=== PATIENT | female | born 1965 | race African-American/Black ===

== ENCOUNTER 2023-06-28 09:21 | Emergency (ER) | payer SELFPAY ==
[~2023-06-28 09:21] MED LIST: Iopamidol 300 61% 100 ML VIAL FS ONE
[2023-06-28] MEDS ORDERED: Ondansetron PF 4 MG/2 ML Vial ONE (10:01)
[2023-06-28] MEDS ORDERED: Acetaminophen 325 MG TAB ONE (10:02)
[2023-06-28 10:28] LABS: #Basophils 0.1 10x3/uL (0.0-0.2); #Eosinphils 0.2 10x3/uL (0.0-0.5); #Monocytes 0.5 10x3/uL (0.0-1.1); %Basophils 1.8 % (0.0-2.0); %Eosinophils 3.2 % (0.0-6.0); %Lymphocytes 18.7 % (18.0-47.0); %Monocytes 7.2 % (0.0-10.0); %Neutrophils 68.8 % (40.0-75.0); Hematocrit 37.4 % (34.9-44.5); Hemoglobin 13.2 g/dL (12.0-15.5); Mean Corpuscular HGB CONC 35.3 g/dL (32.0-36.0); Mean Corpuscular Hemoglobin 28.9 pg (27.0-33.0); Mean Corpuscular Volume 81.8 fl (81.6-98.3); Platelet Count 287 10x3/uL (150-450); RBC Distribution Width 14.1 % (11.5-14.5); Red Blood Cell (RBC) Count 4.57 10x6/uL (3.90-5.03); White Blood Cell (WBC) Count 7.2 10x3/uL (3.5-10.5)
[2023-06-28 10:44] LABS: ALT (SGPT) 29 U/L (8-55); AST (SGOT) 31 U/L (5-34); Albumin 4.2 g/dL (3.5-5.0); Alkaline Phosphatase 67 U/L (40-110); Anion Gap 21 mmol/L (10-20); BUN (Urea Nitrogen) 26 mg/dL (9.8-20.1); Bilirubin, Total 0.4 mg/dL (0.2-1.2); Calc. Creatinine Clearance 0 mL/min (70-130); Calcium 8.8 mg/dL (7.8-10.44); Carbon Dioxide 24 mmol/L (22-29); Chloride 100 mmol/L (98-107); Estimated GFR 62; Globulin 3.5 g/dL (2.4-3.5); Glucose 112 mg/dL (70-105); Lipase 26 U/L (8-78); Potassium 3.6 mmol/L (3.5-5.1); Protein, Total 7.7 g/dL (6.0-8.3); Sodium 141 mmol/L (136-145)
[2023-06-28 11:13] LABS: SARS-CoV-2 NAA Rapid Test Not Detected (NotDetected)
[2023-06-28 13:19] LABS: Bilirubin Neg (Negative); Blood, Urine Negative (Negative); Clarity Clear (Clear); Glucose, Urine (Dipstick) Normal (Negative); Ketone, Urine Negative (Negative); Leukocyte Negative (Negative); Nitrite Negative (Negative); Protein, Urine (Dipstick) Negative (Neg-Trace); Urobilinogen Normal mg/dL (Less than 2)
[2023-06-28 13:29] LABS: Bacteria/HPF 2+ HPF (None Seen); CAUTI Indications for Culture Alt mental st,lethar; Calcium Oxalate Crystals Rare HPF (None Seen); Red Blood Cell Cast 0-3 LPF (None Seen); Squamous Epithelial 0-3 HPF (0-3); Transitional Epithelial 0-3 HPF (None Seen)
[2023-06-28 13:30] LABS: Urine Culture Reflex No No
== END 2023-06-28 14:25 | disposition home or self-care (01) ==
LOC: CSHERS 09:21
DX: N39.0 Urinary tract infection, site not specified (principal); K59.00 Constipation, unspecified; I11.0 Hypertensive heart disease with heart failure; I50.9 Heart failure, unspecified; Z20.822 Contact with and (suspected) exposure to COVID-19
CPT/HCPCS: 74177; 80053; 81001; 83690; 85025; 96374; J2405; Q9967